=== PATIENT | male | born 1955 | race Caucasian/White ===

== ENCOUNTER → 2021-05-08 | Outpatient (CLI) | payer MEDICARE ==
[~2021-05-08] MED LIST: ASPIRIN 325MG325 MG PO; ASPIRIN CHEWABL81 MG PO; ATORVASTATIN CA80 MG PO; CLOPIDOGREL75 MG PO; DEX4 GLUCOSE4 GM PO; DOXYCYCLINE HY100 MG PO; FLOMAX 0.4 MG0.4 MG PO; GABAPENTIN800 MG PO; HUMALOG 10100 UNITS/ SC; INVANZ 1 GM VIAL1 GM IV; LANTUS INS100 UTS/M1 SQ; LOPRESSOR 25 MG25 MG PO; MAGNESIUM OXID400 M1 PO; MONTELUKAST SOD10 MG PO; OXYCODON-ACETA1 EAC1 PO; PROTONIX 40 MG40 M1 PO; VITAMIN C500 M4 PO
== END ==
LOC: EXRD 14:29
DX: Z01.818 Encounter for other preprocedural examination (principal); T14.8XXA Other injury of unspecified body region, initial encounter; R93.6 Abnormal findings on diagnostic imaging of limbs
CPT/HCPCS: 93926

== ENCOUNTER 2021-05-18 14:50 | Inpatient (IN) | payer MEDICARE ==
[~2021-05-18] VITALS: Ht 182.9 cm; Wt 70.1 kg
[2021-05-18] MEDS ORDERED: ATORVASTATIN CA80 MG PO (15:36)
[2021-05-18] MEDS ORDERED: CLOPIDOGREL75 MG PO (15:37)
[2021-05-18] MEDS ORDERED: LOPRESSOR 25 MG25 MG PO (15:37)
[2021-05-18] MEDS ORDERED: FLOMAX 0.4 MG0.4 MG PO (15:37)
[2021-05-18] MEDS ORDERED: ASPIRIN CHEWABL81 MG PO (15:43)
[2021-05-18 16:56] LABS: HEMOGLOBIN 10.8 gm/dl (14.0-17.5); RED BLOOD COUNT 3.6 M/UL (4.20-5.50)
[2021-05-18] MEDS ORDERED: OXYCODON-ACETA1 EAC1 PO (17:19)
[2021-05-18] MEDS ORDERED: GABAPENTIN800 MG PO (17:20)
[2021-05-18] MEDS ORDERED: PROTONIX 40 MG40 M1 PO (17:20)
[2021-05-18] MEDS ORDERED: MONTELUKAST SOD10 MG PO (17:20)
[2021-05-18] MEDS ORDERED: DOXYCYCLINE HY100 MG PO (17:20)
[2021-05-18 18:02] LABS: BUN/CREATININE RATIO 17 (0-10)
[2021-05-19 06:41] LABS: HEMOGLOBIN 10.2 gm/dl (14.0-17.5); RED BLOOD COUNT 3.44 M/UL (4.20-5.50); WHITE BLOOD COUNT 6.7 K/UL (4.5-11.0)
[2021-05-19 07:17] LABS: BUN/CREATININE RATIO 15 (0-10)
[2021-05-20 05:39] LABS: HEMOGLOBIN 10.8 gm/dl (14.0-17.5); RED BLOOD COUNT 3.6 M/UL (4.20-5.50); WHITE BLOOD COUNT 6.1 K/UL (4.5-11.0)
[2021-05-20 05:58] LABS: BUN/CREATININE RATIO 17 (0-10)
[2021-05-21 06:52] LABS: HEMOGLOBIN 10.5 gm/dl (14.0-17.5); RED BLOOD COUNT 3.57 M/UL (4.20-5.50)
[2021-05-21 06:53] LABS: WHITE BLOOD COUNT 8.2 K/UL (4.5-11.0)
[2021-05-22 03:49] LABS: HEMOGLOBIN 9.5 gm/dl (14.0-17.5); WHITE BLOOD COUNT 7.8 K/UL (4.5-11.0)
[2021-05-22 03:52] LABS: RED BLOOD COUNT 3.11 M/UL (4.20-5.50)
[2021-05-22 04:16] LABS: BUN/CREATININE RATIO 19 (0-10)
[2021-05-22] MEDS ORDERED: INVANZ 1 GM VIAL1 GM IV (09:44)
[2021-05-22] MEDS ORDERED: DEX4 GLUCOSE4 GM PO (10:23)
[2021-05-22] MEDS ORDERED: LANTUS INS100 UTS/M1 SQ (10:23)
[2021-05-22] MEDS ORDERED: HUMALOG 10100 UNITS/ SC (10:23)
[2021-05-22] MEDS ORDERED: VITAMIN C500 M4 PO (10:33)
[2021-05-22] MEDS ORDERED: MAGNESIUM OXID400 M1 PO (10:33)
[2021-05-22] MEDS ORDERED: ASPIRIN 325MG325 MG PO ×2 (10:33→10:44)
--- NOTE | 2021-05-22 13:21 | NUR ---
REPORT CALLED TO [facility].
== END 2021-05-22 13:19 | disposition home health service (06) | DRG 617 ==
LOC: MED SURG 4 14:54
PROVIDERS: Internal Medicine; Podiatrist Foot & Ankle Surgery; ADMIT Internal Medicine
PROC: 0Y6R0Z0 Detachment at Right 2nd Toe, Complete, Open Approach (ICD-10-PCS; 2021-05-20)
PROC: 0QBL0ZZ Excision of Right Tarsal, Open Approach (ICD-10-PCS; 2021-05-20)
PROC: 02HV33Z Insertion of Infusion Device into Superior Vena Cava, Percutaneous Approach (ICD-10-PCS; 2021-05-20)
PROC: 0Y6M0Z4 Detachment at Right Foot, Complete 1st Ray, Open Approach (ICD-10-PCS; principal; 2021-05-20 09:30)
DX: E11.69 Type 2 diabetes mellitus with other specified complication (principal); M86.8X7 Other osteomyelitis, ankle and foot; Z20.822 Contact with and (suspected) exposure to COVID-19; L03.115 Cellulitis of right lower limb; E11.52 Type 2 diabetes mellitus with diabetic peripheral angiopathy with gangrene; E11.621 Type 2 diabetes mellitus with foot ulcer; L97.512 Non-pressure chronic ulcer of other part of right foot with fat layer exposed; E11.40 Type 2 diabetes mellitus with diabetic neuropathy, unspecified; I25.10 Atherosclerotic heart disease of native coronary artery without angina pectoris; E78.5 Hyperlipidemia, unspecified; B96.89 Other specified bacterial agents as the cause of diseases classified elsewhere; E83.42 Hypomagnesemia; I10 Essential (primary) hypertension; N40.0 Benign prostatic hyperplasia without lower urinary tract symptoms; Z79.4 Long term (current) use of insulin; Z79.82 Long term (current) use of aspirin; Z86.73 Personal history of transient ischemic attack (TIA), and cerebral infarction without residual deficits; Z95.1 Presence of aortocoronary bypass graft; Z83.3 Family history of diabetes mellitus; Z82.49 Family history of ischemic heart disease and other diseases of the circulatory system; Z89.421 Acquired absence of other right toe(s)
CPT/HCPCS: 36415; 73718; 80048; 80053; 80202; 81001; 82570; 82962; 83036; 83735; 84156; 84439; 84443; 85025; 85027; 85610; 85730; 86140; 87040; 87070; 87077; 87186; 87205; 93005; C1751; J1100; J1335; J1650; J1885; J2001; J2405; J2543; J2704; J2795; J3370; J3475; J7030; J7070; J7120; Q4133; U0002

== ENCOUNTER → 2021-08-11 | Outpatient (CLI) | payer MEDICARE | LOC: KOH-I 13:59 | DX: M86.9 Osteomyelitis, unspecified (principal); Z89.421 Acquired absence of other right toe(s); M79.89 Other specified soft tissue disorders | CPT/HCPCS: 73718 ==

== ENCOUNTER 2021-08-18 14:02 | Inpatient (IN) | payer MEDICARE ==
[~2021-08-18] VITALS: Ht 182.9 cm; Wt 70.8 kg
[2021-08-18] MEDS ORDERED: NOVOLOG FL100 UNIT/1 SQ (16:35)
[2021-08-18] MEDS ORDERED: MAGNESIUM OXID400 M2 PO (16:37)
[2021-08-18] MEDS ORDERED: VITAMIN C500 M4 PO (16:38)
[2021-08-18] MEDS ORDERED: MIRTAZAPINE15 MG PO (16:41)
[2021-08-18] MEDS ORDERED: CYPROHEPTADINE H4 MG PO (16:41)
[2021-08-18] MEDS ORDERED: CIPROFLOXACIN500 M1 PO (16:41)
[2021-08-18] MEDS ORDERED: NITROGLYCERIN0.4 MG SL (16:42)
[2021-08-18] MEDS ORDERED: PAROXETINE HCL20 MG PO (16:42)
[2021-08-18 19:16] LABS: HEMOGLOBIN 11.5 gm/dl (14.0-17.5); RED BLOOD COUNT 3.91 M/UL (4.20-5.50)
[2021-08-18 19:44] LABS: BUN/CREATININE RATIO 20 (0-10)
[2021-08-19 10:09] LABS: HEMOGLOBIN 11.3 gm/dl (14.0-17.5); RED BLOOD COUNT 3.84 M/UL (4.20-5.50); WHITE BLOOD COUNT 5.9 K/UL (4.5-11.0)
[2021-08-19 10:45] LABS: BUN/CREATININE RATIO 18 (0-10)
--- NOTE | 2021-08-19 21:07 | NUR ---
BS-[id number]. NOTIFIED DR HOWARD AND PT RECIEVED 10 UNITS PER ORDER. WILL CONTINUE TO MONITOR.
[2021-08-20 10:02] LABS: HEMOGLOBIN 8.9 gm/dl (14.0-17.5); RED BLOOD COUNT 3.02 M/UL (4.20-5.50); WHITE BLOOD COUNT 8.3 K/UL (4.5-11.0)
[2021-08-20 10:29] LABS: BUN/CREATININE RATIO 21 (0-10)
[2021-08-21 06:30] LABS: BUN/CREATININE RATIO 20 (0-10)
[2021-08-21 10:03] LABS: HEMOGLOBIN 7.6 gm/dl (14.0-17.5)
[2021-08-21 10:04] LABS: RED BLOOD COUNT 2.67 M/UL (4.20-5.50)
[2021-08-22 06:39] LABS: HEMOGLOBIN 8.6 gm/dl (14.0-17.5); RED BLOOD COUNT 2.93 M/UL (4.20-5.50); WHITE BLOOD COUNT 7.2 K/UL (4.5-11.0)
[2021-08-22 07:17] LABS: BUN/CREATININE RATIO 23 (0-10)
== END 2021-08-22 19:47 | disposition home health service (06) | DRG 622 ==
LOC: M/S 14:02
PROVIDERS: ADMIT Internal Medicine
PROC: 0QBN0ZZ Excision of Right Metatarsal, Open Approach (ICD-10-PCS; 2021-08-19)
PROC: 0JBQ0ZZ Excision of Right Foot Subcutaneous Tissue and Fascia, Open Approach (ICD-10-PCS; 2021-08-19)
PROC: 0HRMXK3 Replacement of Right Foot Skin with Nonautologous Tissue Substitute, Full Thickness, External Approach (ICD-10-PCS; 2021-08-19)
PROC: 8E0ZXY6 Isolation (ICD-10-PCS; 2021-08-19)
PROC: 02HV33Z Insertion of Infusion Device into Superior Vena Cava, Percutaneous Approach (ICD-10-PCS; principal; 2021-08-21)
DX: E11.69 Type 2 diabetes mellitus with other specified complication (principal); U07.1 COVID-19; L02.611 Cutaneous abscess of right foot; M86.671 Other chronic osteomyelitis, right ankle and foot; L03.115 Cellulitis of right lower limb; E11.628 Type 2 diabetes mellitus with other skin complications; I10 Essential (primary) hypertension; E78.5 Hyperlipidemia, unspecified; I25.10 Atherosclerotic heart disease of native coronary artery without angina pectoris; F41.9 Anxiety disorder, unspecified; F32.9 Major depressive disorder, single episode, unspecified; N40.0 Benign prostatic hyperplasia without lower urinary tract symptoms; D64.9 Anemia, unspecified; E11.40 Type 2 diabetes mellitus with diabetic neuropathy, unspecified; Z86.73 Personal history of transient ischemic attack (TIA), and cerebral infarction without residual deficits; Z95.5 Presence of coronary angioplasty implant and graft; Z89.421 Acquired absence of other right toe(s); Z82.49 Family history of ischemic heart disease and other diseases of the circulatory system; Z83.3 Family history of diabetes mellitus; Z79.82 Long term (current) use of aspirin; Z79.899 Other long term (current) drug therapy; Z79.52 Long term (current) use of systemic steroids; Z79.1 Long term (current) use of non-steroidal anti-inflammatories (NSAID)
CPT/HCPCS: 36415; 80053; 80202; 82962; 83036; 83605; 83735; 84100; 85025; 85652; 86140; 87040; C1751; J1100; J1335; J2405; J2543; J2704; J2795; J3370; J7030; J7040; J7050; J7120; Q4133; U0002